=== PATIENT | male | born 1950 | race Hispanic/Latino ===

== ENCOUNTER 2018-06-17 19:41 | Inpatient (IN) | payer OTHER, MEDICARE | END 2018-06-19 18:00 | disposition home or self-care (01) | LOC: EDH 19:41 → EDHIP 23:43 → 3DH 06-18 00:59 | DX: M77.9 Enthesopathy, unspecified (principal); L03.113 Cellulitis of right upper limb; M13.80 Other specified arthritis, unspecified site ==

== ENCOUNTER 2018-11-26 19:51 | Emergency (ER) | payer OTHER, MEDICARE ==
[~2018-11-26] VITALS: Ht 175.3 cm; Wt 73.5 kg
[~2018-11-26 19:51] MED LIST: CLIN300C9 PO
[2018-11-26] MEDS ORDERED: CLINDAMYCIN PHOSPHATE 150 MG/1 ML 2ML VIAL IM SCH (21:00)
== END 2018-11-26 21:22 | disposition home or self-care (01) ==
LOC: EDH 19:51
DX: S61.412D Laceration without foreign body of left hand, subsequent encounter (principal); L03.114 Cellulitis of left upper limb; Z91.041 Radiographic dye allergy status; Z79.899 Other long term (current) drug therapy; X58.XXXD Exposure to other specified factors, subsequent encounter
CPT/HCPCS: 96372; 99283; J3490

== ENCOUNTER 2020-05-13 10:16 | Emergency (ER) | payer MEDICARE, OTHER ==
[~2020-05-13 10:16] MED LIST changes: +CLIN300C10 PO; -CLIN300C9 PO
[2020-05-13] MEDS ORDERED: METHYLPREDNISOLONE SOD SUCC 125MG/2ML VIAL ONE (12:01)
[2020-05-13 13:04] LABS: BASOPHILS % (AUTO) 0.5 % (0.0-5.0); EOSINOPHILS % (AUTO) 2.1 % (0.0-8.0); HEMATOCRIT 38.1 % (42-54); LYMPHOCYTES % (AUTO) 12.8 % (21.0-51.0); MEAN CORPUSCULAR HEMOGLOBIN 27.5 pg (27.0-33.0); MEAN CORPUSCULAR HGB CONC 32.3 g/dL (32.0-36.0); MONOCYTES % (AUTO) 5.8 % (3.0-13.0); NEUTROPHILS % (AUTO) 78.6 % (40.0-77.0); PLATELET COUNT (AUTO) 222 K/uL (130-400); RED BLOOD CELL COUNT(AUTO) 4.48 MIL/uL (4.50-6.20); RED CELL DISTRIBUTION WIDTH 15.6 % (11.0-15.5); WHITE BLOOD COUNT (AUTO) 8.8 K/uL (4.8-10.8)
[2020-05-13 13:16] LABS: POTASSIUM 3.2 mmol/L (3.5-5.1)
[2020-05-13 13:21] LABS: TOTAL PROTEIN, SERUM 7.3 g/dL (6.0-8.3)
[2020-05-13] MEDS ORDERED: POTASSIUM BICARB/CIT AC 25 MEQ TABLET.EFF ONE (15:07)
[2020-05-13] MEDS ORDERED: BUPIVACAINE/PF 0.5% 30ML VIAL ONE (15:13)
[2020-05-13] MEDS ORDERED: METHYLPREDNISOLONE SOD SUCC 40MG/ML 1ML ONE (15:23)
[2020-05-13 16:38] LABS: APPEARANCE BODY FLUID SLIGHTLY CLOUDY (CLEAR); BODY FLUID WBC 12500 /cu. mm.; COLOR,BODY FLUID YELLOW (LT YELLOW); SPECIMENTYPE,BODY FLUID SYNOVIAL; TOTAL VOLUME,BODY FLUID 15 mL
[2020-05-13 16:39] LABS: BODY FLUID RBC 634 /cu. mm.
[2020-05-13 16:52] LABS: BF LYMPHOCYTE 6 %
== END 2020-05-13 15:51 | disposition home or self-care (01) ==
LOC: EDH 10:16
DX: M79.18 Myalgia, other site (principal); M26.629 Arthralgia of temporomandibular joint, unspecified side; M25.461 Effusion, right knee; M17.12 Unilateral primary osteoarthritis, left knee; M25.551 Pain in right hip; C78.5 Secondary malignant neoplasm of large intestine and rectum; Z87.891 Personal history of nicotine dependence; Z91.041 Radiographic dye allergy status
CPT/HCPCS: 20610; 36415; 73502; 73562; 80053; 85025; 87071; 87205; 89051; 96374; 99285; J2920; J2930; J3490; 96372

== ENCOUNTER 2021-01-19 14:08 | Inpatient (IN) | payer OTHER ==
[~2021-01-19] VITALS: Ht 175.3 cm; Wt 58.4 kg
[~2021-01-19 14:08] MED LIST changes: +CLIN-141 PO; -CLIN300C10 PO
[2021-01-19 15:18] LABS: BASOPHILS % (AUTO) 0.1 % (0.0-5.0); HEMATOCRIT 27.1 % (42-54); LYMPHOCYTES % (AUTO) 10.6 % (21.0-51.0); MEAN CORPUSCULAR HEMOGLOBIN 25.3 pg (27.0-33.0); MEAN CORPUSCULAR VOLUME 81.6 fL (79-99); MONOCYTES % (AUTO) 7.8 % (3.0-13.0); NEUTROPHILS % (AUTO) 80.9 % (40.0-77.0); PLATELET COUNT (AUTO) 274 K/uL (130-400); RED BLOOD CELL COUNT(AUTO) 3.32 MIL/uL (4.50-6.20); RED CELL DISTRIBUTION WIDTH 17.2 % (11.0-15.5)
[2021-01-19 15:26] LABS: INR 1.28 (0.85-1.15); PROTHROMBIN TIME 13.6 SEC (9.6-11.6)
[2021-01-19 15:28] LABS: PARTIAL THROMBOPLASTIN TIME 29.4 SEC (26.3-35.5)
[2021-01-19 15:30] LABS: CREATININE 0.8 mg/dL (0.5-1.5); POTASSIUM 3.3 mmol/L (3.5-5.1)
[2021-01-19] MEDS ORDERED: 0.9%NACL 1000ML 1,000 ML IV ONE (15:30)
[2021-01-19 15:37] LABS: ALBUMIN 2.1 g/dL (3.5-5.0); BILIRUBIN,TOTAL 1.2 mg/dL (0.2-1.0); TOTAL PROTEIN, SERUM 6.6 g/dL (6.0-8.3)
[2021-01-19 15:40] LABS: B-TYPE NATRIURETIC PEPTIDE 115 pg/mL (0-100)
[2021-01-19 18:05] LABS: APPEARANCE,URINE Clear (CLEAR); BILIRUBIN,URINE Small (NEGATIVE); COLOR,URINE Dark Yellow (YELLOW); GLUCOSE, URINE (UA) Negative (NEGATIVE); KETONES,URINE Trace mg/dL (NEGATIVE); LEUKOCYTE ESTERASE ,URINE Trace (NEGATIVE); NITRATE,URINE Negative (NEGATIVE); OCCULT BLOOD,URINE Negative (NEGATIVE); PH,URINE 5.5 (5.0-8.0); PROTEIN,URINE POS 1+ mg/dL (NEGATIVE)
[2021-01-19 18:29] LABS: BACTERIA,URINE Few /HPF (None Seen); RBC,URINE 0-1 /HPF (0-1); SQUAMOUS EPITHELIAL CELL,UR Rare /HPF (0-2)
[2021-01-19 18:30] LABS: HYALINE CASTS, URINE 0-1 /LPF (0-1 /LPF); MUCUS,URINE Few LPF (None Seen)
[2021-01-19] MEDS ORDERED: ACETAMINOPHEN 325 MG SUPPOSITORY RC PRN ×2 (19:00)
[2021-01-19] MEDS ORDERED: AZITHROMYCIN 500MG VIAL IVPB SCH (19:00)
[2021-01-19] MEDS ORDERED: NITROGLYCERIN 0.4 MG SL TAB SL PRN (19:00)
[2021-01-19] MEDS ORDERED: 0.9% NACL 250ML IVPB SCH (19:00)
[2021-01-19] MEDS ORDERED: LIDOCAINE HCL-MPF 1% 2ML VIAL IV PRN ×2 (19:00→21:00)
[2021-01-19] MEDS ORDERED: ONDANSETRON 4MG INJ IV PRN (19:00)
[2021-01-19] MEDS ORDERED: POTASSIUM CHLORIDE 20MEQ/100ML 100 ML IV PRN ×2 (19:00→21:00)
[2021-01-19 19:40] LABS: HEMOGLOBIN A1C 5.5 % (4.0-6.0)
[2021-01-19 19:52] LABS: MAGNESIUM 1.9 mg/dL (1.80-2.40)
[2021-01-19] MEDS ORDERED: AZITHROMYCIN 500MG+NS 250ML 250 ML IV ONE (20:13)
[2021-01-19 20:23] LABS: % IRON SATURATION 18.8 % (30-44)
[2021-01-19] MEDS ORDERED: CALCIUM GLUC IV SCH (20:30)
[2021-01-19] MEDS ORDERED: [UNRECOGNIZED DRUG - OTHER] IV SCH (20:30)
[2021-01-19] MEDS: 0.9%NACL 1000ML 1,000 ML IV SCH (20:48)
[2021-01-19] MEDS: CEFTRIAXONE 1G VIAL IV SCH (20:48)
[2021-01-19] MEDS ORDERED: KCL 20 MEQ ERTAB PO PRN (21:00)
[2021-01-19] MEDS ORDERED: POTASSIUM CHLORIDE 10% ELIXIR 20 MEQ/15 ML UDCUP PO PRN (21:00)
[2021-01-19] MEDS: FAMOTIDINE 20MG VIAL IV SCH (21:25)
[2021-01-20] VITALS (8 sets, daily range): BP systolic 97–124; BP diastolic 56–65
[2021-01-20 05:20] LABS: BASOPHILS % (AUTO) 0.1 % (0.0-5.0); EOSINOPHILS % (AUTO) 0.1 % (0.0-8.0); HEMATOCRIT 26.7 % (42-54); LYMPHOCYTES % (AUTO) 13.7 % (21.0-51.0); MEAN CORPUSCULAR HEMOGLOBIN 25.6 pg (27.0-33.0); MEAN CORPUSCULAR HGB CONC 30.7 g/dL (32.0-36.0); MEAN CORPUSCULAR VOLUME 83.4 fL (79-99); MONOCYTES % (AUTO) 7.1 % (3.0-13.0); NEUTROPHILS % (AUTO) 78.2 % (40.0-77.0); PLATELET COUNT (AUTO) 244 K/uL (130-400); RED CELL DISTRIBUTION WIDTH 17.5 % (11.0-15.5); WHITE BLOOD COUNT (AUTO) 7.4 K/uL (4.8-10.8)
[2021-01-20 05:48] LABS: ALBUMIN 1.8 g/dL (3.5-5.0); BILIRUBIN,TOTAL 1.2 mg/dL (0.2-1.0); CREATININE 0.8 mg/dL (0.5-1.5); TOTAL PROTEIN, SERUM 5.9 g/dL (6.0-8.3)
[2021-01-20] MEDS: 0.9%NACL 1000ML 1,000 ML IV SCH (09:58)
[2021-01-20] MEDS: FAMOTIDINE 20MG VIAL IV SCH ×2 (09:58→19:43)
[2021-01-20] MEDS: ENOXAPARIN SODIUM 30 MG/0.3 ML SQ SCH (09:59)
[2021-01-20] MEDS: CEFTRIAXONE 1G VIAL IV SCH (19:37)
[2021-01-20] MEDS ORDERED: AZITHROMYCIN 500MG+NS 250ML IV SCH (20:00)
[2021-01-20] MEDS: 0.9% NACL 250ML IVPB SCH (20:46)
[2021-01-21] VITALS (8 sets, daily range): BP systolic 129–140; BP diastolic 63–85
[2021-01-21] MEDS: 0.9%NACL 1000ML 1,000 ML IV SCH ×2 (06:07→20:39)
[2021-01-21 06:15] LABS: BASOPHILS % (AUTO) 0.1 % (0.0-5.0); EOSINOPHILS % (AUTO) 0.1 % (0.0-8.0); HEMATOCRIT 27.4 % (42-54); LYMPHOCYTES % (AUTO) 13.6 % (21.0-51.0); MEAN CORPUSCULAR HEMOGLOBIN 25.1 pg (27.0-33.0); MEAN CORPUSCULAR HGB CONC 29.6 g/dL (32.0-36.0); MEAN CORPUSCULAR VOLUME 84.8 fL (79-99); MONOCYTES % (AUTO) 8.1 % (3.0-13.0); NEUTROPHILS % (AUTO) 77.4 % (40.0-77.0); PLATELET COUNT (AUTO) 287 K/uL (130-400); RED BLOOD CELL COUNT(AUTO) 3.23 MIL/uL (4.50-6.20); RED CELL DISTRIBUTION WIDTH 17.8 % (11.0-15.5); WHITE BLOOD COUNT (AUTO) 7.1 K/uL (4.8-10.8)
[2021-01-21 06:23] LABS: CREATININE 0.7 mg/dL (0.5-1.5); POTASSIUM 4.3 mmol/L (3.5-5.1)
[2021-01-21] MEDS: FAMOTIDINE 20MG VIAL IV SCH ×2 (08:55→20:38)
[2021-01-21 08:57] LABS: THYROID STIMULATING HORMONE 1.65 uIU/mL (0.36-3.74)
[2021-01-21] MEDS: ENOXAPARIN SODIUM 30 MG/0.3 ML SQ SCH (08:59)
[2021-01-21] MEDS ORDERED: ZOSYN 3.375GM +NS 50ML IV SCH (13:00)
[2021-01-21] MEDS: ZOSYN 3.375GM+NS 50ML 50 ML IV SCH ×2 (14:56→20:38)
[2021-01-21] MEDS: LEVOFLOXACIN 500 MG TABLET PO SCH (14:56)
[2021-01-21] MEDS ORDERED: GADOTERATE MEGLUMINE 10 MMOL/20 ML VIAL IV ONE (15:43)
[2021-01-21] MEDS: 0.9% NACL 250ML IVPB SCH (19:46)
[2021-01-22] VITALS (12 sets, daily range): BP systolic 103–129; BP diastolic 57–74
[2021-01-22] MEDS: ZOSYN 3.375GM+NS 50ML 50 ML IV SCH ×3 (05:41→21:00)
[2021-01-22 07:52] LABS: ABG BASE EXCESS 1.8 mmol/L (-2.0-3.0); ABG HCO3 22.8 mmol/L (21.0-28.0); ABG OXYGEN SATURATION 97.8 % (95.0-99.0); ABG PCO2 27 mmHg (35-48)
[2021-01-22] MEDS: FAMOTIDINE 20MG VIAL IV SCH ×2 (09:44→21:31)
[2021-01-22] MEDS: ENOXAPARIN SODIUM 30 MG/0.3 ML SQ SCH (09:45)
[2021-01-22] MEDS: IRON SUCROSE COMPLEX 300 MG in 0.9%NACL 50ML 50 ML IV SCH (10:00)
[2021-01-22] MEDS ORDERED: COMPOUND IV MISC 1 EACH IVSOLN MISC PRN (10:00)
[2021-01-22] MEDS ORDERED: COMPOUND IV REFRIGERATED 1 EACH IVSOLN MISC PRN (10:00)
[2021-01-22] MEDS: 0.9%NACL 1000ML 1,000 ML IV SCH (13:40)
[2021-01-22] MEDS ORDERED: VANCOMYCIN PROTOCOL PER PHARMACY IV SCH (14:00)
[2021-01-22 14:35] LABS: INR 1.43 (0.85-1.15); PROTHROMBIN TIME 15.1 SEC (9.6-11.6)
[2021-01-22 14:36] LABS: PARTIAL THROMBOPLASTIN TIME 37.3 SEC (26.3-35.5)
[2021-01-22] MEDS: VANCOMYCIN 1G/250ML KIT 250 ML IV SCH (16:46)
[2021-01-22] MEDS: FOLIC ACID 5 MG/ML VIAL IV SCH (16:47)
[2021-01-22] MEDS: LEVOFLOXACIN 500 MG TABLET PO SCH (16:47)
[2021-01-22] MEDS: 0.9% NACL 250ML IVPB SCH (20:00)
[2021-01-23 04:00] VITALS: BP 104/58
[2021-01-23] MEDS: VANCOMYCIN 1G/250ML KIT 250 ML IV SCH (04:00)
[2021-01-23] MEDS: 0.9%NACL 1000ML 1,000 ML IV SCH (04:00)
[2021-01-23] MEDS: ZOSYN 3.375GM+NS 50ML 50 ML IV SCH ×2 (05:53→12:22)
[2021-01-23 05:55] LABS: BASOPHILS % (AUTO) 0.1 % (0.0-5.0); EOSINOPHILS % (AUTO) 0.3 % (0.0-8.0); HEMATOCRIT 26.4 % (42-54); LYMPHOCYTES % (AUTO) 9.7 % (21.0-51.0); MEAN CORPUSCULAR HEMOGLOBIN 25.2 pg (27.0-33.0); MEAN CORPUSCULAR HGB CONC 31.1 g/dL (32.0-36.0); NEUTROPHILS % (AUTO) 81.9 % (40.0-77.0); PLATELET COUNT (AUTO) 271 K/uL (130-400); RED BLOOD CELL COUNT(AUTO) 3.26 MIL/uL (4.50-6.20); RED CELL DISTRIBUTION WIDTH 17.7 % (11.0-15.5); WHITE BLOOD COUNT (AUTO) 6.9 K/uL (4.8-10.8)
[2021-01-23 06:17] LABS: ALBUMIN 1.6 g/dL (3.5-5.0); BILIRUBIN,TOTAL 1.2 mg/dL (0.2-1.0); CREATININE 0.8 mg/dL (0.5-1.5); POTASSIUM 3.1 mmol/L (3.5-5.1); TOTAL PROTEIN, SERUM 5.6 g/dL (6.0-8.3)
[2021-01-23 08:00] VITALS: BP 107/60
[2021-01-23] MEDS: FOLIC ACID 5 MG/ML VIAL IV SCH (09:51)
[2021-01-23] MEDS: FAMOTIDINE 20MG VIAL IV SCH (09:55)
[2021-01-23] MEDS: ENOXAPARIN SODIUM 30 MG/0.3 ML SQ SCH (09:55)
[2021-01-23] MEDS: IRON SUCROSE COMPLEX 300 MG in 0.9%NACL 50ML 50 ML IV SCH (10:27)
[2021-01-23 12:00] VITALS: BP 93/58
[2021-01-23] MEDS: LEVOFLOXACIN 500 MG TABLET PO SCH (12:23)
[2021-01-23 16:00] VITALS: BP 99/57
[2021-01-23] MEDS ORDERED: VANCOMYCIN 1.5GM/NS 250ML IV SCH ×2 (16:00)
[2021-01-23 16:05] VITALS: BP 103/56
[2021-01-23 16:10] VITALS: BP 96/60
== END 2021-01-23 18:30 | DRG 871 ==
LOC: EDH 14:08 → EDHIP 18:55 → 3DH 01-20 04:30
PROVIDERS: ADMIT Internal Medicine; ATTEND Internal Medicine
DX: A41.9 Sepsis, unspecified organism (principal); J18.9 Pneumonia, unspecified organism; E43 Unspecified severe protein-calorie malnutrition; E87.1 Hypo-osmolality and hyponatremia; N39.0 Urinary tract infection, site not specified; J98.11 Atelectasis; Z68.1 Body mass index [BMI] 19.9 or less, adult; D84.9 Immunodeficiency, unspecified; C78.7 Secondary malignant neoplasm of liver and intrahepatic bile duct; H70.003 Acute mastoiditis without complications, bilateral; R65.20 Severe sepsis without septic shock; D50.8 Other iron deficiency anemias; E87.6 Hypokalemia; E83.51 Hypocalcemia; Z20.822 Contact with and (suspected) exposure to COVID-19; R79.89 Other specified abnormal findings of blood chemistry; R54 Age-related physical debility; E86.1 Hypovolemia; D64.9 Anemia, unspecified; Z91.041 Radiographic dye allergy status; Z85.46 Personal history of malignant neoplasm of prostate; Z85.05 Personal history of malignant neoplasm of liver; Z92.21 Personal history of antineoplastic chemotherapy; Z85.038 Personal history of other malignant neoplasm of large intestine; Z85.048 Personal history of other malignant neoplasm of rectum, rectosigmoid junction, and anus; Z82.3 Family history of stroke; Z83.3 Family history of diabetes mellitus; Z82.49 Family history of ischemic heart disease and other diseases of the circulatory system
CPT/HCPCS: 36415; 36600; 70450; 70553; 71045; 76705; 80048; 80053; 80202; 81001; 82330; 82533; 82550; 82607; 82728; 82746; 82803; 83036; 83540; 83550; 83605; 83735; 83874; 83880; 84145; 84443; 84484; 85025; 85610; 85730; 86140; 87040; 87088; 87486; 87581; 87633; 87635; 87798; 92610; 93005; 97039; C9803; G0378; J0456; J0610; J0696; J1650; J1756; J2543; J3370; J3490; J7030; J7050